=== PATIENT | female | born 1980 | race Caucasian/White ===

== ENCOUNTER 2020-07-18 20:10 | Emergency (ER) | payer OTHER ==
[~2020-07-18 20:10] MED LIST: BENADRYL 25MG C25 MG PO; PREDNISONE20 MG PO
[2020-07-18 21:02] LABS: HEMOGLOBIN 12.5 gm/dl (12.3-15.3); RED BLOOD COUNT 4.32 M/UL (4.00-5.10); WHITE BLOOD COUNT 6.9 K/UL (4.5-11.0)
[2020-07-18 21:21] LABS: BUN/CREATININE RATIO 17 (0-10)
[2020-07-19] MEDS ORDERED: ASPIRIN CHEWABL81 MG PO (00:03)
== END 2020-07-19 00:14 | disposition home or self-care (01) ==
LOC: ER1 20:10
PROVIDERS: Physician Assistant
DX: R07.89 Other chest pain (principal); R05 Cough; R00.2 Palpitations
CPT/HCPCS: 71045; 80053; 81001; 82550; 82553; 83874; 83880; 84484; 84703; 85025; 85610; 85730; 87086; 93005; 99285

== ENCOUNTER → 2020-10-14 | Outpatient (CLI) | payer OTHER ==
[~2020-10-14] MED LIST changes: +ASPIRIN CHEWABL81 MG PO
== END ==
LOC: HEART 5 09:21
DX: R07.9 Chest pain, unspecified (principal); R00.2 Palpitations
CPT/HCPCS: 93306